=== PATIENT | female | born 1990 | race Two or more races ===

== ENCOUNTER 2018-01-14 20:22 | Emergency (ER) | payer OTHER ==
[2018-01-14 22:11] LABS: BILIRUBIN,URINE NEGATIVE (NEG); CLARITY,URINE CLEAR; GLUCOSE,URINE NEGATIVE (NEG); NITRITE,URINE NEGATIVE (NEG); PH,URINE 7.5; PROTEIN,URINE NEGATIVE (NEG-TRACE); UROBILINOGEN,URINE 0.2 mg/dL (0.2 mg/dL)
[2018-01-14 22:14] LABS: COLOR,URINE STRAW
[2018-01-14 22:16] LABS: BACTERIA,URINE FEW /HPF (0-FEW); RBC,URINE 0 /HPF (0-2); SQUAMOUS EPITHELIAL CELL,UR FEW /LPF; WBC,URINE 0 /HPF (0-4)
[2018-01-14 22:37] LABS: ADD MAN DIFF? NO
[2018-01-14 22:40] LABS: BASO # 0.1 x10^3/uL (0.0-0.2); BASO % 1 % (0-3); EOS # 0.1 x10^3/uL (0.0-0.7); EOS % 1 % (0-3); HEMATOCRIT 37.9 % (36.0-47.0); HEMOGLOBIN 12.4 g/dL (12.0-15.5); LYMPH # 2.4 x10^3/uL (1.0-4.8); LYMPH % 17 % (24-48); MEAN CORPUSCULAR HEMOGLOBIN 25 pg (25-35); MEAN CORPUSCULAR HGB CONC 33 g/dL (31-37); MEAN CORPUSCULAR VOLUME 76 fL (79-100); MONO # 0.6 x10^3/uL (0.0-1.1); MONO % 4 % (0-9); NEUT # 10.9 x10^3uL (1.8-7.7); NEUT % 77 % (31-73); PLATELET COUNT 184 x10^3/uL (140-400); RED BLOOD COUNT 5.02 x10^6/uL (3.50-5.40); RED CELL DISTRIBUTION WIDTH 14.4 % (11.5-14.5); WHITE BLOOD COUNT 14.1 x10^3/uL (4.0-11.0)
[2018-01-14 23:34] LABS: AGAP ISTAT 14 mmol/L (6-14); BUN ISTAT 13 mg/dL (8-26); CHLORIDE ISTAT 102 mmol/L (98-110); CREATININE ISTAT 0.7 mg/dL (0.5-1.4); GLUCOSE ISTAT 90 mg/dL (70-99); HEMATOCRIT ISTAT 39 % (36-40); HEMOGLOBIN ISTAT 13.3 g/dL (12-15); ION CA ISTAT 1.21 mmol/L (1.13-1.32); POTASSIUM ISTAT 3.4 mmol/L (3.5-5.0); SODIUM ISTAT 139 mmol/L (135-145); TOT CO2 ISTAT 27 mmol/L (23-32)
[2018-01-14] MEDS: IOHEXOL 300 MG/ML 100ML VIAL. IV (23:48)
[2018-01-14] MEDS ORDERED: CONTRAST GIVEN MC (23:55)
[2018-01-15] MEDS: KETOROLAC 30 MG/ML INJ. IV (01:56)
[2018-01-15 07:19] LABS: URINE HCG POC HCG NEGATIVE (Negative)
== END 2018-01-15 02:05 | disposition home or self-care (01) ==
LOC: ER 01-15 02:05
DX: S20.212A Contusion of left front wall of thorax, initial encounter (principal); M54.5 Low back pain; K14.8 Other diseases of tongue; V49.9XXA Car occupant (driver) (passenger) injured in unspecified traffic accident, initial encounter; Y93.89 Activity, other specified; Y99.8 Other external cause status; Y92.488 Other paved roadways as the place of occurrence of the external cause
CPT/HCPCS: 36415; 71046; 72128; 74177; 80047; 81001; 81025; 85025; 96374; 99285-25; J1885; Q9967